=== PATIENT | male | born 1955 | race Caucasian/White ===

== ENCOUNTER → 2018-10-15 | Outpatient (CLI) | payer MEDICARE, OTHER ==
[~2018-10-15] MED LIST: ASCO-178 PO; ASCO-188 PO; ASPI-1441 PO; ASPI-1471 PO; ASPI81TA94 PO; BEN10 PO; BENA20TA64 PO; BENA40TA53 PO; CET10 PO; CETI-169 PO; CYAN100058 PO; FEN145 FT; FENO130C6 PO; FENO145T36 PO; FISH OIL1 CAP PO; GLUC-198 PO; GLUC1TAB25 PO; HCTZ; HYDR-2966 PO; IBU200 PO; IBUP800T37 PO; MONT10TA PO; MULT-820 PO; POTA10CA40 PO; ROSU10TA5 PO; SILD100T59 PO
[2018-10-15 11:32] LABS: PLATELET COUNT, AUTOMATED 238 K/uL (150-450)
== END ==
LOC: LAB 11:01
PROVIDERS: ATTEND Emergency Medicine
DX: I10 Essential (primary) hypertension (principal); Z80.42 Family history of malignant neoplasm of prostate
CPT/HCPCS: 36415; 82607; 84443; 85025; G0103; 84153

== ENCOUNTER → 2018-10-31 | Outpatient (CLI) | payer MEDICARE, OTHER ==
[~2018-10-31] MED LIST changes: +AMLO-125 PO; +CETI10CA8 PO; +ROSU10TA PO
== END ==
LOC: RESP 20:36
PROVIDERS: ATTEND Emergency Medicine
DX: G47.33 Obstructive sleep apnea (adult) (pediatric) (principal); G47.36 Sleep related hypoventilation in conditions classified elsewhere; G47.61 Periodic limb movement disorder

== ENCOUNTER 2018-11-07 01:49 | Day surgery (SDC) | payer MEDICARE, OTHER ==
[~2018-11-07] VITALS: Ht 182.9 cm; Wt 122.5 kg
[2018-11-07] MEDS ORDERED: PROPOFOL EMUL(*) 10MG/ML 20 ML 40 ML ONE (06:54)
[2018-11-07] MEDS ORDERED: NORMOSOL R SOLN(*) 1000 ML BAG 1,000 ML IV PRN (09:10)
[2018-11-07] MEDS ORDERED: LIDOCAINE/SOD BICARB 8.4% SYR ID ONE (09:10)
[2018-11-07 09:29] VITALS: BP 135/100
[2018-11-07] MEDS ORDERED: PROPOFOL EMUL(*) 10MG/ML 20 ML 20 ML ONE ×2 (11:23→11:35)
[2018-11-07 11:50] VITALS: BP 126/93
--- NOTE | 2018-11-07 11:57 | Short(Outpt) Discharge Summary ---
Discharge Summary Reason for Hosp/Final Diag: (1) Colon cancer screening Status: Chronic Hospital Course & Plan: Colonoscopy completed without problems. Departure Discharge to: Home, Self Care Discharge Instructions Home Meds Active Scripts Amlodipine Besylate (AMLODIPINE BESYLATE) 5 Mg Tablet, 1 TAB PO QHS, #30 TAB 0 Refills Prov:SU CANSECO MD 10/24/18 Rosuvastatin Calcium (CRESTOR) 10 Mg Tab, 10 MG PO QDAY, #90 TAB 3 Refills Prov:SU CANSECO MD 10/18/18 Montelukast Sodium (SINGULAIR) 10 Mg Tablet, 1 TAB PO QDAY, #30 TAB Prov:SU CANSECO MD 10/15/18 Benazepril Hcl (BENAZEPRIL HCL) 40 Mg Tablet, 1 TAB PO QDAY, #90 TAB 1 Refill Prov:LYDIA INMAN MD 06/19/18 Fenofibrate Nanocrystallized (FENOFIBRATE) 145 Mg Tablet, 1 TAB PO QDAY, #90 TAB 1 Refill Prov:LYDIA INMAN MD 06/19/18 Hydrochlorothiazide (HYDROCHLOROTHIAZIDE) 25 Mg Tablet, 1 TAB PO QDAY, #90 TAB 1 Refill Prov:LYDIA INMAN MD 06/19/18 Reported Medications Cetirizine Hcl (ZYRTEC) 10 Mg Capsule, 10 MG PO QDAY PRN for ALLERGY SYMPTOMS, CAPSULE 10/31/18 Cyanocobalamin (Vitamin B-12) (Vitamin B-12) 1,000 Mcg Capsule, 1 CAP PO DAILY 10/16/18 Potassium Chloride (POTASSIUM CHLORIDE) 10 Meq Capsule.er, 10 MEQ PO QDAY, CAP 09/27/18 Ascorbic Acid (VITAMIN C) 500 Mg Tab.chew, 1 TAB PO QDAY, TAB.CHEW 01/06/15 Glucosa Peters 2KCL/Chondroitin Peters (GLUCOSAMINE & CHONDROITIN CAP) 1 Each Capsule, 1 CAP PO QDAY, CAPSULE 07/08/14 Multivitamin (MULTIVITAMINS) 1 Each Tablet, 1 TAB PO DAILY 07/08/14 Diet: Regular Activity: As Tolerated Special Instructions: Your colonoscopy was completed without problems and your prep was excellent (Good Job!!). I didn't find any polyps, cancer, or other problems. I recommend that your next colonoscopy be in 10 years. GWENDOLYN CERVANTES MD Nov 07, 2018 11:57
[2018-11-07 12:04] VITALS: BP 112/82
[2018-11-07 12:15] VITALS: BP 121/93
[2018-11-07 12:26] VITALS: BP 129/69
[2018-11-07 12:27] VITALS: BP 117/91
== END 2018-11-07 12:34 | disposition home or self-care (01) ==
LOC: OR 01:49
PROVIDERS: ATTEND Surgery
DX: Z12.11 Encounter for screening for malignant neoplasm of colon (principal)
CPT/HCPCS: 00812; G0121; J2704

== ENCOUNTER → 2018-11-14 | Outpatient (CLI) | payer MEDICARE, OTHER ==
[~2018-11-14] MED LIST changes: +AMLO2.5T78 PO
== END ==
LOC: LAB 09:34
PROVIDERS: ATTEND Emergency Medicine
DX: R53.83 Other fatigue (principal); R68.82 Decreased libido
CPT/HCPCS: 36415; 84402; 84403

== ENCOUNTER → 2018-11-30 | Outpatient (CLI) | payer MEDICARE, OTHER | LOC: RESP 20:38 | PROVIDERS: ATTEND Emergency Medicine | DX: G47.33 Obstructive sleep apnea (adult) (pediatric) (principal); G47.36 Sleep related hypoventilation in conditions classified elsewhere; G47.61 Periodic limb movement disorder ==